=== PATIENT | female | born 1995 | race Hispanic/Latino ===

== ENCOUNTER 2019-03-31 12:32 | Inpatient (IN) | payer BC, OTHER ==
[2019-03-31] MEDS ORDERED: Diphenoxylate HCl/Atropine Tablet PO PRN ×2 (13:05)
[2019-03-31] MEDS ORDERED: Ibuprofen 800 MG TAB PO PRN (13:05)
[2019-03-31] MEDS ORDERED: Docusate 100 MG CAP PO PRN (13:05)
[2019-03-31] MEDS ORDERED: Ondansetron PF 4 MG/2 ML Vial IVP PRN (13:05)
[2019-03-31] MEDS ORDERED: HYDROcodone/Acetaminophen 5/325 mg Tablet PO PRN ×2 (13:05)
[2019-03-31] MEDS ORDERED: NS / Oxytocin 40 units/1000ml 1,000 ML IV PRN (13:05)
[2019-03-31] MEDS ORDERED: Zolpidem Tartrate 5 MG TAB PO PRN (13:05)
[2019-03-31] MEDS ORDERED: Promethazine HCl 25 MG/ML VIAL IM PRN (13:05)
[2019-03-31] MEDS ORDERED: hydrALAZINE 20 MG/ML VIAL SLOW IVP PRN (13:05)
[2019-03-31] MEDS ORDERED: Acetaminophen 500 MG TAB PO PRN (13:05)
[2019-03-31] MEDS ORDERED: Lidocaine 1% (PF) 30 ML VIAL SC PRN (13:05)
[2019-03-31] MEDS ORDERED: Butorphanol Tartrate 1 MG/ML VIAL SLOW IVP PRN (13:05)
[2019-03-31] MEDS ORDERED: NS w/ Oxytocin 10 units 500 ML IV SCH (13:15)
[2019-03-31 13:33] VITALS: BMI 43.3
[2019-03-31] MEDS: Lactated Ringer's 1,000 ML IV SCH ×2 (13:44→19:51)
[2019-03-31 14:12] LABS: Hemoglobin 11.8 g/dL (12.0-16.0); Mean Corpuscular Hemoglobin 28.7 pg (27.0-31.0); Mean Platelet Volume 9.3 fL (7.4-10.4); Platelet Count 318 thou/uL (130-400); RBC Distribution Width 12.8 % (11.5-14.5); Red Blood Cell (RBC) Count 4.11 mill/uL (4.20-5.40); White Blood Cell (WBC) Count 10.7 thou/uL (4.8-10.8)
[2019-03-31] MEDS ORDERED: Misoprostol 100 MCG TAB ONE (14:30)
[2019-03-31 14:31] LABS: ALT (SGPT) 9 U/L (8-55); AST (SGOT) 12 U/L (5-34); Albumin 3.4 g/dL (3.5-5.0); Alkaline Phosphatase 320 U/L (40-110); Anion Gap 14 mmol/L (10-20); BUN (Urea Nitrogen) 11 mg/dL (7.0-18.7); Bilirubin, Total 0.2 mg/dL (0.2-1.2); Calc. Creatinine Clearance 200 mL/min (70-130); Calcium 8.6 mg/dL (7.8-10.44); Carbon Dioxide 19 mmol/L (22-29); Chloride 105 mmol/L (98-107); Estimated GFR-MDRD Greater than 90; Glucose 76 mg/dL (70-105); Potassium 4.6 mmol/L (3.5-5.1); Protein, Total 6.4 g/dL (6.0-8.3); Sodium 133 mmol/L (136-145); Uric Acid 5.9 mg/dL (2.6-6.0)
[2019-03-31 14:45] LABS: Syphilis Antibody Nonreactive (Nonreactive); Syphilis Antibody Index 0.03 S/CO (<1.00 Non-Reactive)
[2019-03-31 14:46] LABS: HBSAg Index 0.17 S/CO (0-0.99); Hep B Surf Ag Non-Reactive S/CO (NonReactive)
[2019-03-31] MEDS: NS w/ Oxytocin 10 units 500 ML IV SCH (16:53)
[2019-03-31] MEDS: Misoprostol 100 MCG TAB VAG SCH ×3 (16:54→22:31)
[2019-03-31] MEDS ORDERED: Labetalol 100 MG TAB PO SCH (21:00)
[2019-04-01] MEDS: Labetalol 100 MG TAB PO SCH ×5 (02:34→22:41)
[2019-04-01] MEDS: NS w/ Oxytocin 10 units 500 ML IV SCH (02:34)
[2019-04-01] MEDS: Lactated Ringer's 1,000 ML IV SCH ×3 (03:01→22:41)
[2019-04-01] MEDS ORDERED: Labetalol 100 MG TAB PO SCH (06:00)
[2019-04-01] MEDS ORDERED: Fentanyl 4 mcg/Bup 0.1% Cadd 100 ML ONE (08:48)
[2019-04-01] MEDS ORDERED: Naloxone HCl 0.4 mg/ml Vial IVP PRN ×2 (08:57)
[2019-04-01] MEDS ORDERED: Ondansetron PF 4 MG/2 ML Vial IVP PRN ×2 (08:57→13:40)
[2019-04-01] MEDS ORDERED: Acetaminophen 325 MG TAB PO PRN (08:57)
[2019-04-01] MEDS ORDERED: Promethazine HCl 25 MG/ML VIAL IM PRN (08:57)
[2019-04-01] MEDS ORDERED: Lactated Ringer's 500 ML IV PRN (08:57)
[2019-04-01] MEDS ORDERED: diphenhydrAMINE 50 MG/ML VIAL IVP PRN (08:57)
[2019-04-01] MEDS ORDERED: ePHEDrine/0.9% NaCl/PF SYRINGE 50 mg/10 ml SLOW IVP PRN (08:57)
[2019-04-01] MEDS ORDERED: Fentanyl 4 mcg/Bupivacaine 0.1% Cassette 100 ML EPIDURAL SCH (09:00)
[2019-04-01] MEDS ORDERED: Communication Order-Pharmacy FS SCH (09:00)
[2019-04-01] MEDS ORDERED: Preparation H Ointment 28 GM TUBE PR PRN (13:40)
[2019-04-01] MEDS ORDERED: Milk Of Magnesia 30 ML UDCUP PO PRN (13:40)
[2019-04-01] MEDS ORDERED: diphenhydrAMINE 25 MG CAP PO PRN (13:40)
[2019-04-01] MEDS ORDERED: hydrALAZINE 20 MG/ML VIAL SLOW IVP PRN (13:40)
[2019-04-01] MEDS ORDERED: Adacel (T-DAP) 0.5 ML SYRINGE IM ONE (13:40)
[2019-04-01] MEDS ORDERED: Misoprostol 200 MCG TAB VAG PRN (13:40)
[2019-04-01] MEDS ORDERED: Benzocaine-Menthol 82.5 ML CAN TOP PRN (13:40)
[2019-04-01] MEDS ORDERED: Zolpidem Tartrate 5 MG TAB PO PRN (13:40)
[2019-04-01] MEDS ORDERED: Bisacodyl 10 MG SUPP PR PRN (13:40)
[2019-04-01] MEDS ORDERED: Lanolin Ointment 7 GM TUBE TOP PRN (13:40)
[2019-04-01] MEDS ORDERED: Acetaminophen/Codeine 30-300mg Tablet PO PRN ×2 (13:40)
[2019-04-01] MEDS ORDERED: NS / Oxytocin 40 units/1000ml 1,000 ML IV SCH (13:45)
[2019-04-01] MEDS: Misoprostol 100 MCG TAB VAG SCH ×2 (17:27→17:28)
[2019-04-01] MEDS: Ibuprofen 800 MG TAB PO SCH ×2 (18:05→20:22)
[2019-04-01] MEDS: Ferrous Sulfate 325 MG TAB PO SCH (18:05)
[2019-04-01] MEDS: Docusate Calcium (SURFAK) 240 MG CAP PO SCH (20:22)
[2019-04-02] MEDS: Lactated Ringer's 1,000 ML IV SCH ×3 (00:14→20:55)
[2019-04-02] MEDS: Ibuprofen 800 MG TAB PO SCH ×3 (05:51→20:59)
[2019-04-02] MEDS: Ferrous Sulfate 325 MG TAB PO SCH ×2 (08:26→14:27)
[2019-04-02] MEDS: Labetalol 100 MG TAB PO SCH ×6 (08:28→20:59)
[2019-04-02] MEDS: Docusate Calcium (SURFAK) 240 MG CAP PO SCH ×2 (08:28→20:59)
[2019-04-02] MEDS: NS w/ Oxytocin 10 units 500 ML IV SCH (14:27)
[2019-04-02] MEDS ORDERED: Bupivacaine HCl 0.25%/Epi 0.0005/PF 10 ML VIAL FS ONE (18:00)
[2019-04-03] MEDS: Lactated Ringer's 1,000 ML IV SCH ×2 (05:42→07:45)
[2019-04-03] MEDS: Ibuprofen 800 MG TAB PO SCH (05:46)
[2019-04-03] MEDS: Ferrous Sulfate 325 MG TAB PO SCH (07:44)
[2019-04-03] MEDS: Labetalol 100 MG TAB PO SCH ×2 (07:44→08:50)
[2019-04-03] MEDS: NS w/ Oxytocin 10 units 500 ML IV SCH (07:45)
[2019-04-03 08:01] VITALS: TEMP 98.3
[2019-04-03] MEDS: Docusate Calcium (SURFAK) 240 MG CAP PO SCH (08:50)
[2019-04-03 10:54] VITALS: BP 136/82
== END 2019-04-03 13:00 | disposition home or self-care (01) | DRG 806 ==
LOC: L&D/OP 12:32 → L&D 12:48 → 3SW 04-01 17:25
PROVIDERS: ADMIT Obstetrics & Gynecology; ATTEND Obstetrics & Gynecology
PROC: 10E0XZZ Delivery of Products of Conception, External Approach (ICD-10-PCS; principal; 2019-04-01)
PROC: 0HQ9XZZ Repair Perineum Skin, External Approach (ICD-10-PCS; 2019-04-01)
PROC: 10907ZC Drainage of Amniotic Fluid, Therapeutic from Products of Conception, Via Natural or Artificial Opening (ICD-10-PCS; 2019-04-01)
PROC: 3E0P7VZ Introduction of Hormone into Female Reproductive, Via Natural or Artificial Opening (ICD-10-PCS; 2019-04-01)
PROC: 3E0234Z Introduction of Serum, Toxoid and Vaccine into Muscle, Percutaneous Approach (ICD-10-PCS; 2019-04-01)
DX: O14.94 Unspecified pre-eclampsia, complicating childbirth (principal); O99.354 Diseases of the nervous system complicating childbirth; Z37.0 Single live birth; O70.0 First degree perineal laceration during delivery; Z3A.37 37 weeks gestation of pregnancy; G43.909 Migraine, unspecified, not intractable, without status migrainosus; O69.1XX0 Labor and delivery complicated by cord around neck, with compression, not applicable or unspecified; G40.909 Epilepsy, unspecified, not intractable, without status epilepticus; K21.9 Gastro-esophageal reflux disease without esophagitis; O99.62 Diseases of the digestive system complicating childbirth; Z91.048 Other nonmedicinal substance allergy status; Z23 Encounter for immunization
CPT/HCPCS: 36415; 80053; 82570; 83615; 84155; 84550; 85027; 86780; 86850; 86900; 86901; 87340; J0360; J2590